=== PATIENT | female | born 1995 | race Caucasian/White ===

== ENCOUNTER 2018-11-05 21:55 | Emergency (ER) | payer OTHER ==
[2018-11-05] MEDS ORDERED: Sodium Chloride 0.9% 1000 ML 1,000 ML IV STA (23:04)
[2018-11-05 23:38] LABS: Appearance SLIGHTLY CLOUDY (CLEAR); Bacteria FEW /HPF (NEGATIVE); Bilirubin NEGATIVE (NEGATIVE); Blood NEGATIVE Ery/ul (0-5); Epithelial Cells RARE /HPF (FEW); Glucose NEGATIVE (NEGATIVE); Ketones NEGATIVE (NEGATIVE); Leukocyte Esterase NEGATIVE (NEGATIVE); Mucus MANY /HPF (NEGATIVE); Nitrite NEGATIVE (NEGATIVE); Protein,Urine Dip 30 (Negative); Specific Gravity 1.028 (1.005-1.025); Urobilinogen 2 mg/dL (0-1)
[2018-11-05] MEDS ORDERED: Sodium Chloride 0.9% 1000 ML 1,000 ML ONE (23:39)
[2018-11-05 23:54] LABS: BASOPHIL % 0.1 % (0.0-0.4); Basophil (Absolute #) 0.02 (0-0.4); Eosinophil % 0.5 % (0.00-5.0); Eosinophil (Absolute #) 0.07 (0-0.5); Granulocyte Absolute (ANC) 8.87 (1.4-6.9); Granulocytes % 65.6 % (36.0-66.0); Hematocrit 43.2 % (35-47); Hemoglobin 14.1 gm/dl (12.0-16.0); Lymphocyte (Absolute #) 3.83 (1.0-4.6); Lymphocytes % 28.3 % (24.0-44.0); Mean Cell Volume 96.2 fl (78-100); Mean Corpuscular Hemoglobin 31.4 pg (26-32); Mean Corpuscular Hgb Concent. 32.6 g/dl (32-36); Monocyte (Absolute #) 0.75 (0.0-1.3); Monocytes % 5.5 % (0.0-12.0); Platelet Count 321 K/mm3 (150-450); Red Blood Count 4.49 M/mm3 (4.1-5.4); Red Cell Distribution Width 12.9 % (11.5-14.0); White Blood Count 13.5 K/mm3 (4.0-10.5)
[2018-11-06 00:06] LABS: ALBUMIN 4.6 g/dL (3.5-5.0); ALKALINE PHOSPHATASE 71 U/L (38-126); ANION GAP 14.1 MEQ/L (5-15); BLOOD UREA NITROGEN 15 mg/dL (7-17); CHLORIDE 108 mmol/L (98-107); Calcium 9.6 mg/dL (8.4-10.2); Carbon Dioxide 24 mmol/L (22-30); Creatinine 1 0.69 mg/dL (0.52-1.04); Glucose 94 mg/dL (74-106); Potassium 4.5 mmol/L (3.5-5.1); SGOT/AST 25 U/L (14-36); SGPT/ALT 20 U/L (0-35); SODIUM 142 mmol/L (137-145); Total Protein 8.2 g/dL (6.3-8.2)
[2018-11-06 01:42] VITALS: O2SAT 98
[2018-11-06] MEDS ORDERED: Cipro 500 MG PO STA (02:08)
[2018-11-06] MEDS ORDERED: Cipro 500 MG ONE (02:14)
--- NOTE | 2018-11-06 02:19 | ERPHSYRPT ---
- History of Present Illness Source: patient Exam Limitations: no limitations Patient Subjective Stated Complaint: back pain Triage Nursing Assessment: Patient ambulated back to ED and transferred self to bed. Patient A+O X3. Patient's skin pink, warm and dry. Patient complains of back pain the the lower middle part of back. Patient denies injury to back. Patient states pain is intermittent throbbing, sharp, and stabbing at times 8/ 10. No visible bruising or areas noted to back. Physician History: Pt is a 23 y/o female that had L CVA pain for several weeks. Today the pain was severe and she came to the ER. Pt denies F/C/S. No SOB or cough. No chest pain or palpitations. The pt denies N/V/D or abdominal pain. Pt denies frequency, urgency and dysuria. Timing/Duration: week(s) Activites at Onset: none Quality: aching, cramping, dullness Onset Location: other (L CVA) Pain Radiation: left flank Severity of Pain-Max: mild Severity of Pain-Current: mild Prior abdominal problems: none Modifying Factors: Improves With: analgesics Associated Symptoms: lower back pain (on the left) Allergies/Adverse Reactions: amoxicillin [Amoxicillin] Allergy (Verified 11/05/18 22:37) cefaclor [From Ceclor] Allergy (Verified 11/05/18 22:37) Home Medications: Metformin HCl 500 mg [Glucophage 500 MG] 500 mg PO HS 03/20/13 [History] Spironolactone 1 tab PO DAILY 11/05/18 [History] Hx Tetanus, Diphtheria Vaccination/Date Given: Yes Hx Influenza Vaccination/Date Given: Yes Hx Pneumococcal Vaccination/Date Given: No - Review of Systems Constitutional: No Fever, No Chills Eyes: No Symptoms Ears, Nose, & Throat: No Symptoms Respiratory: No Cough, No Dyspnea Cardiac: No Chest Pain, No Edema, No Syncope Abdominal/Gastrointestinal: No Abdominal Pain, No Nausea, No Vomiting, No Diarrhea Genitourinary Symptoms: No Symptoms, Flank Pain (on the L) Musculoskeletal: No Back Pain, No Neck Pain Neurological: No Dizziness, No Focal Weakness, No Sensory Changes - Past Medical History Pertinent Past Medical History: Yes Neurological History: No Pertinent History ENT History: No Pertinent History Cardiac History: No Pertinent History Respiratory History: Pulmonary Embolism Endocrine Medical History: Other Musculoskeletal History: No Pertinent History GI Medical History: No Pertinent History History: No Pertinent History Psycho-Social History: No Pertinent History Female Reproductive Disorders: No Pertinent History Other Medical History: CYST 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, PE 2013 from control - Past Surgical History Past Surgical History: Yes Cardiac: No Pertinent History Respiratory: No Pertinent History Gastrointestinal: No Pertinent History Genitourinary: No Pertinent History Musculoskeletal: Orthopedic Surgery Female Surgical History: No Pertinent History Other Surgical History: TONSILS, Plate two screws and wire in L ankle, Gastric Sleeve March 2018 - Social History Smoking Status: Never smoker Exposure to second hand smoke: Yes Drug Use: none Patient Lives Alone: No - Female History Hx Last Menstrual Period: October 10 Hx Now: No - Nursing Vital Signs Nursing Vital Signs: Initial Vital Signs Temperature 98.0 F 11/05/18 22:40 Pulse Rate 78 11/05/18 22:40 Respiratory Rate 18 11/05/18 22:40 Blood Pressure 141/85 11/05/18 22:40 O2 Sat by Pulse Oximetry 97 11/05/18 22:40 Pain Scale Pain Intensity 8 - Physical Exam General Appearance: no apparent distress, alert Eye Exam: PERRL/EOMI, eyes nml inspection Ears, Nose, Throat Exam: normal ENT inspection, TMs normal, pharynx normal, moist mucous membranes Neck Exam: normal inspection, non-tender, supple, full range of motion Respiratory Exam: normal breath sounds, lungs clear, No respiratory distress Cardiovascular Exam: regular rate/rhythm, normal heart sounds, normal peripheral pulses Gastrointestinal/Abdomen Exam: soft, No tenderness, No mass Back Exam: CVA tenderness (on the L) Extremity Exam: normal inspection, normal range of motion, pelvis stable Neurologic Exam: alert, oriented x 3, cooperative, copper tapper II-XII nml as tested, normal mood/affect, sensation nml, No motor deficits SpO2 Interpretation: normal SpO2: 98 O2 Delivery: Room Air - CT Exams Abdomen/Pelvis CT Interpretation: Negative (No acute CT pathology) Ordered Tests: Active Orders 24 hr Category Date Time Status IV Insertion STAT Care 11/05/18 23:04 Active ABDOMEN AND PELVIS W/0 CONTRAS [CT] Stat Exams 11/05/18 23:05 Taken CBC W DIFF Stat Lab 11/05/18 23:50 Completed CMP Stat Lab 11/05/18 23:50 Completed CULTURE,URINE Stat Lab 11/05/18 23:20 Received HCG,QUALITATIVE URINE Stat Lab 11/05/18 23:20 Completed UA W/RFX UR CULTURE Stat Lab 11/05/18 23:20 Completed Medication Summary Discontinued Medications Generic Name Dose Route Start Last Admin Trade Name Alan PRN Reason Stop Dose Admin Ciprofloxacin 500 mg 11/06/18 02:08 Cipro 500 Mg PO 11/06/18 02:09 ONCE STA Sodium Chloride 1,000 mls @ 999 mls/hr 11/05/18 23:04 11/06/18 01:42 Sodium Chloride 0.9% 1000 Ml IV 11/06/18 00:04 Infused .Q1H1M STA Infusion Sodium Chloride Confirm 11/05/18 23:39 Sodium Chloride 0.9% 1000 Ml Administered 11/05/18 23:40 Dose 1,000 mls @ ud .ROUTE .STK-MED ONE Lab/Rad Data: Laboratory Result Diagrams 11/05/18 23:50 11/05/18 23:50 Laboratory Results 11/05/18 11/05/18 11/05/18 Range/Units 23:50 23:50 23:20 WBC 13.5 H (4.0-10.5) K/mm3 RBC 4.49 (4.1-5.4) M/mm3 Hgb 14.1 (12.0-16.0) gm/dl Hct 43.2 (35-47) % MCV 96.2 (78-100) fl MCH 31.4 (26-32) pg MCHC 32.6 (32-36) g/dl RDW 12.9 (11.5-14.0) % Plt Count 321 (150-450) K/mm3 MPV 9.0 (6-9.5) fl Gran % 65.6 (36.0-66.0) % Eos # (Auto) 0.07 (0-0.5) Absolute Lymphs (auto) 3.83 (1.0-4.6) Absolute Monos (auto) 0.75 (0.0-1.3) Lymphocytes % 28.3 (24.0-44.0) % Monocytes % 5.5 (0.0-12.0) % Eosinophils % 0.5 (0.00-5.0) % Basophils % 0.1 (0.0-0.4) % Absolute Granulocytes 8.87 H (1.4-6.9) Basophils # 0.02 (0-0.4) Sodium 142 (137-145) mmol/L Potassium 4.5 (3.5-5.1) mmol/L Chloride 108 H (98-107) mmol/L Carbon Dioxide 24 (22-30) mmol/L Anion Gap 14.1 (5-15) MEQ/L BUN 15 (7-17) mg/dL Creatinine 0.69 (0.52-1.04) mg/dL Estimated GFR > 60.0 ML/MIN Glucose 94 (74-106) mg/dL Calcium 9.6 (8.4-10.2) mg/dL Total Bilirubin 0.50 (0.2-1.3) mg/dL AST 25 (14-36) U/L ALT 20 (0-35) U/L Alkaline Phosphatase 71 (38-126) U/L Serum Total Protein 8.2 (6.3-8.2) g/dL Albumin 4.6 (3.5-5.0) g/dL Urine Color (YELLOW) Urine Appearance (CLEAR) Urine pH (5-6) Ur Specific [place] (1.005-1.025) Urine Protein (Negative) Urine Ketones (NEGATIVE) Urine Blood (0-5) Geoff/ul Urine Nitrite (NEGATIVE) Urine Bilirubin (NEGATIVE) Urine Urobilinogen (0-1) mg/dL Ur Leukocyte Esterase (NEGATIVE) Urine WBC (Auto) (0-5) /HPF Urine RBC (Auto) (0-2) /HPF U Epithel Cells (Auto) (FEW) /HPF Urine Bacteria (Auto) (NEGATIVE) /HPF Urine Mucus (Auto) (NEGATIVE) /HPF Urine Culture Reflexed (NO) Urine Glucose (NEGATIVE) mg/dL Urine HCG, Qual NEGATIVE (Negative) 11/05/18 Range/Units 23:20 WBC (4.0-10.5) K/mm3 RBC (4.1-5.4) M/mm3 Hgb (12.0-16.0) gm/dl Hct (35-47) % MCV (78-100) fl MCH (26-32) pg MCHC (32-36) g/dl RDW (11.5-14.0) % Plt Count (150-450) K/mm3 MPV (6-9.5) fl Gran % (36.0-66.0) % Eos # (Auto) (0-0.5) Absolute Lymphs (auto) (1.0-4.6) Absolute Monos (auto) (0.0-1.3) Lymphocytes % (24.0-44.0) % Monocytes % (0.0-12.0) % Eosinophils % (0.00-5.0) % Basophils % (0.0-0.4) % Absolute Granulocytes (1.4-6.9) Basophils # (0-0.4) Sodium (137-145) mmol/L Potassium (3.5-5.1) mmol/L Chloride (98-107) mmol/L Carbon Dioxide (22-30) mmol/L Anion Gap (5-15) MEQ/L BUN (7-17) mg/dL Creatinine (0.52-1.04) mg/dL Estimated GFR ML/MIN Glucose (74-106) mg/dL Calcium (8.4-10.2) mg/dL Total Bilirubin (0.2-1.3) mg/dL AST (14-36) U/L ALT (0-35) U/L Alkaline Phosphatase (38-126) U/L Serum Total Protein (6.3-8.2) g/dL Albumin (3.5-5.0) g/dL Urine Color YELLOW (YELLOW) Urine Appearance SLIGHTLY CLOUDY (CLEAR) Urine pH 6.0 (5-6) Ur Specific [place] 1.028 (1.005-1.025) Urine Protein 30 (Negative) Urine Ketones NEGATIVE (NEGATIVE) Urine Blood NEGATIVE (0-5) Geoff/ul Urine Nitrite NEGATIVE (NEGATIVE) Urine Bilirubin NEGATIVE (NEGATIVE) Urine Urobilinogen 2 (0-1) mg/dL Ur Leukocyte Esterase NEGATIVE (NEGATIVE) Urine WBC (Auto) 3-5 (0-5) /HPF Urine RBC (Auto) 3-5 (0-2) /HPF U Epithel Cells (Auto) RARE (FEW) /HPF Urine Bacteria (Auto) FEW (NEGATIVE) /HPF Urine Mucus (Auto) MANY (NEGATIVE) /HPF Urine Culture Reflexed YES (NO) Urine Glucose NEGATIVE (NEGATIVE) mg/dL Urine HCG, Qual (Negative) - Progress Progress: improved Air Movement: good Progress Note: 11/06/18 02:23 Pt was seen and examined. WBCs were4 13.5, otherwise, labs and UA were negative , as well as CT. Pt did get IVF 1 lit bolus. I will treat pt for UTI, secondary to clinical signs and WBCss. Pt should f/u with her PCP if no improvement in symptoms. Blood Culture(s) Obtained: No Antibiotics given: Yes Will see patient in: office Counseled pt/family regarding: need for follow-up - Departure Departure Disposition: Home Clinical Impression: Left low back pain Condition: Stable Critical Care Time: No Referrals: ERICKA DE SANTIAGO [Primary Care Provider] - Additional Instructions: Drink plenty of fluids, and finish ABX. F/U with PCP. Prescriptions: Ciprofloxacin [Cipro 500 MG] 500 mg PO BIDAC #13 tablet
[2018-11-06 02:53] VITALS: BP 111/50; PULSE 73
--- NOTE | 2018-11-06 09:04 | XRAY ---
Indication: Left costovertebral angle pain couple weeks. Elevated WBC. Multiple contiguous axial images obtained through the abdomen and pelvis without contrast as ordered. Comparison: None Lung bases are clear. Heart is not enlarged. Small distal paraesophageal calcified node. There has been bariatric surgery. Noncontrasted stomach and bowel loops appear nonobstructed. Normal appendix. No free fluid/air. Remaining liver, gallbladder, pancreas, spleen, adrenal glands, kidneys, ureters, bladder, uterus, and aorta appear unremarkable for noncontrast exam. Osseous structures intact. Impression: 1. Bariatric surgery and paraesophageal calcified node. 2. Remaining CT abdomen/pelvis without contrast exam is negative. Comment: Preliminary interpretation was made by [facility]. No critical discrepancy. CT DI 28.13
== END 2018-11-06 02:44 | disposition home or self-care (01) ==
LOC: ED 21:55
DX: M54.5 Low back pain (principal); N39.0 Urinary tract infection, site not specified
CPT/HCPCS: 36000; 36415; 74176; 80053; 81001; 84703; 85025; 87077; 87086; 87186; 96360; 99284; A9270-GY

== ENCOUNTER 2018-12-06 20:14 | Emergency (ER) | payer OTHER ==
--- NOTE | 2018-12-06 20:17 | ERPHSYRPT ---
- History of Present Illness Time Seen by Provider: 12/06/18 20:17 Source: patient Exam Limitations: no limitations Physician History: 23 y/o white female presents with low back and tailbone pain. pt slipped on stairs hitting her low back and buttock on 3 steps. pt has no urinary sx Occurred: just prior to arrival Reason for Fall: slipped Injuries/Pain Location: back, lower Loss of Consciousness: no loss of consciousness Quality: aching Severity of Pain-Max: moderate Severity of Pain-Current: moderate Modifying Factors: Improves With: movement Associated Symptoms (Fall): denies symptoms Allergies/Adverse Reactions: amoxicillin [Amoxicillin] Allergy (Verified 12/06/18 20:19) cefaclor [From Ceclor] Allergy (Verified 12/06/18 20:19) Home Medications: Metformin HCl 500 mg [Glucophage 500 MG] 500 mg PO HS 03/20/13 [History] Spironolactone 1 tab PO DAILY 11/05/18 [History] Hx Tetanus, Diphtheria Vaccination/Date Given: Yes Hx Influenza Vaccination/Date Given: Yes Hx Pneumococcal Vaccination/Date Given: No - Review of Systems Constitutional: No Symptoms Eyes: No Symptoms Ears, Nose, & Throat: No Symptoms Respiratory: No Symptoms Cardiac: No Symptoms Abdominal/Gastrointestinal: No Symptoms Genitourinary Symptoms: No Symptoms Musculoskeletal: Fall, Injury Skin: No Symptoms Neurological: No Symptoms Psychological: No Symptoms Endocrine: No Symptoms Hematologic/Lymphatic: No Symptoms Immunological/Allergic: No Symptoms All Other Systems: Reviewed and Negative - Past Medical History Pertinent Past Medical History: Yes Neurological History: No Pertinent History ENT History: No Pertinent History Cardiac History: No Pertinent History Respiratory History: Pulmonary Embolism Endocrine Medical History: Other Musculoskeletal History: No Pertinent History GI Medical History: No Pertinent History History: No Pertinent History Psycho-Social History: No Pertinent History Female Reproductive Disorders: No Pertinent History Other Medical History: CYST 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, PE 2013 from control - Past Surgical History Past Surgical History: Yes Cardiac: No Pertinent History Respiratory: No Pertinent History Gastrointestinal: No Pertinent History Genitourinary: No Pertinent History Musculoskeletal: Orthopedic Surgery Female Surgical History: No Pertinent History Other Surgical History: TONSILS, Plate two screws and wire in L ankle, Gastric Sleeve March 2018 - Social History Smoking Status: Never smoker Exposure to second hand smoke: Yes Drug Use: none Patient Lives Alone: No - Nursing Vital Signs Nursing Vital Signs: Initial Vital Signs Temperature 98.0 F 12/06/18 20:20 Pulse Rate 58 L 12/06/18 20:20 Respiratory Rate 18 12/06/18 20:20 Blood Pressure 148/77 12/06/18 20:20 O2 Sat by Pulse Oximetry 99 12/06/18 20:20 Pain Scale Pain Intensity 7 - [place] Coma Score Best Eye Response (Edgar): (4) open spontaneously Best Verbal Response ([place]): (5) oriented Best Motor Response (Edgar): (6) obeys commands Edgar Total: 15 - Physical Exam General Appearance: mild distress, alert, anxiety Head Injury: no evidence of injury Eye Exam: PERRL/EOMI, eyes nml inspection ENT Exam: airway nml, nml ext.inspection, No evidence of ENT injury Neck Exam: supple, trachea midline, full range of motion, normal alignment, normal inspection Respiratory/Chest Exam: No chest tenderness, No respiratory distress Gastrointestinal Exam: No tenderness Rectal Exam: not done Back Exam: normal inspection, normal range of motion, muscle spasm (lumbar level ), other (no ecchymosis or step off), No CVA tenderness, No vertebral tenderness Extremity Exam: normal inspection, normal range of motion, pelvis stable Neurologic Exam: alert, oriented x 3, cooperative, squadron worker II-XII nml as tested, normal mood/affect, nml cerebellar function, nml station & gait, sensation nml Skin Exam: normal color, warm, dry SpO2 Interpretation: normal O2 Delivery: Room Air - Course Nursing assessment & vital signs reviewed: Yes Ordered Tests: Active Orders 24 hr Category Date Time Status LUMBAR LIMITED (2 OR 3 VIEWS) Stat Exams 12/06/18 20:35 Ordered SACRUM AND COCCYX Stat Exams 12/06/18 Ordered Medication Summary Discontinued Medications Generic Name Dose Route Start Last Admin Trade Name Freq PRN Reason Stop Dose Admin Oxycodone/Acetaminophen 1 tab 12/06/18 20:54 Percocet Tablet 5/325mg PO 12/06/18 20:55 STAT STA - Progress Progress: unchanged Progress Note: 12/06/18 21:02 lumbar and sacrococcyx xray-no acute fx or subluxation Counseled pt/family regarding: diagnosis, need for follow-up, rad results - Departure Departure Disposition: Home Clinical Impression: Fall, Contusion Condition: Stable Critical Care Time: No Referrals: ERICKA DE SANTIAGO [Primary Care Provider] - Additional Instructions: ice pack to area 3 times daily for 3 days. tylenol and ibuprofen with food for pain. follow up with primary doctor for persistent symptoms
[2018-12-06 20:30] VITALS: O2SAT 99
[2018-12-06] MEDS ORDERED: PERCOCET TABLET 5/325MG PO STA (20:54)
[2018-12-06] MEDS ORDERED: PERCOCET TABLET 5/325MG ONE (21:03)
[2018-12-06 21:23] VITALS: BP 110/56; PULSE 60
--- NOTE | 2018-12-06 21:37 | XRAY ---
Indication: Pain following fall. Comparison: None 3 views of the sacrum/coccyx obtained. No bony, articular, or soft tissue abnormalities.
--- NOTE | 2018-12-06 21:42 | XRAY ---
Indication: Pain following fall. Comparison: None 3 views of the lumbar spine demonstrates 5 lumbar vertebral segments in normal alignment with vertebral body height/disc spaces maintained and minimal T11-T12 anterior endplate spurring. No bony, articular, or soft tissue abnormalities.
== END 2018-12-06 21:24 | disposition home or self-care (01) ==
LOC: ED 20:14
DX: S30.0XXA Contusion of lower back and pelvis, initial encounter (principal); W01.0XXA Fall on same level from slipping, tripping and stumbling without subsequent striking against object, initial encounter; Y93.89 Activity, other specified; Y92.89 Other specified places as the place of occurrence of the external cause; M54.5 Low back pain
CPT/HCPCS: 72100; 72220; 99283; A9270-GY

== ENCOUNTER 2019-08-25 23:09 | Emergency (ER) | payer OTHER ==
[2019-08-25] MEDS ORDERED: Sodium Chloride 0.9% 1000 ML 1,000 ML IV STA (23:38)
[2019-08-25] MEDS ORDERED: Sodium Chloride 0.9% 1000 ML 1,000 ML ONE (23:43)
--- NOTE | 2019-08-26 00:24 | ERPHSYRPT ---
- History of Present Illness Time Seen by Provider: 08/25/19 23:30 Patient Subjective Stated Complaint: pt states that she was on the [place] yesterday and began to feel bad yesterday night, pt states that today she began to have nausea, pt states that she has a headache, pt states that she went to [facility] today and states that she received a bag of fluid and 2 tylenol, pt states that she had labs and a CT done at [facility], pt states "there is something really wrong and no one is taking me serious" Triage Nursing Assessment: pt came into the er via wheelchair, pt is axo x3, c/ o weakness and headache, c/o nausea, lung sounds clear, heart tone clear, active bowel sounds in all quads, sericulturist weak, pushes weak, pupils 3 mm and PERRL , vital wnl Physician History: 24-year-old female who is been boating and skiing for 2 days who this evening started to feel weak and lightheaded and somewhat dizzy. She was taken to [facility] where she had a rather extensive work-up including a CT of the head and multiple blood tests. She came from there to here because she is convinced that something was missed. Headache. Timing/Duration: today Severity: mild Modifying Factors: Improves With: nothing Associated Symptoms: denies symptoms Allergies/Adverse Reactions: amoxicillin [Amoxicillin] Allergy (Verified 12/06/18 20:19) cefaclor [From Ceclor] Allergy (Verified 12/06/18 20:19) Home Medications: Metformin HCl 500 mg [Glucophage 500 MG] 500 mg PO HS 03/20/13 [History] Sertraline HCl 50 mg PO DAILY 08/25/19 [History] Hx Tetanus, Diphtheria Vaccination/Date Given: Yes Hx Influenza Vaccination/Date Given: Yes Hx Pneumococcal Vaccination/Date Given: No Travel Risk - International Travel Have you traveled outside of the country in past 3 weeks: No - Coronavirus Screening Are you exhibiting any of the following symptoms?: No Close contact with a COVID-19 positive Pt in past 14-21 Days: No - Review of Systems Constitutional: No Fever, No Chills Eyes: No Symptoms Ears, Nose, & Throat: No Symptoms Respiratory: No Cough, No Dyspnea Cardiac: No Chest Pain, No Edema, No Syncope Abdominal/Gastrointestinal: No Abdominal Pain, No Nausea, No Vomiting, No Diarrhea Genitourinary Symptoms: No Dysuria Musculoskeletal: No Back Pain, No Neck Pain Skin: No Rash Neurological: Headache, Vertigo, No Dizziness, No Focal Weakness, No Sensory Changes Psychological: No Symptoms Endocrine: No Symptoms All Other Systems: Reviewed and Negative - Past Medical History Pertinent Past Medical History: Yes Neurological History: No Pertinent History ENT History: No Pertinent History Cardiac History: Deep Vein Thrombosis Respiratory History: Pulmonary Embolism Endocrine Medical History: No Pertinent History Musculoskeletal History: Fractures GI Medical History: No Pertinent History History: No Pertinent History Psycho-Social History: Depression Female Reproductive Disorders: No Pertinent History Other Medical History: CYST 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, PE 2013 from control - Past Surgical History Past Surgical History: Yes Neuro Surgical History: No Pertinent History Cardiac: No Pertinent History Respiratory: No Pertinent History Gastrointestinal: No Pertinent History Genitourinary: No Pertinent History Musculoskeletal: Orthopedic Surgery Female Surgical History: No Pertinent History Other Surgical History: TONSILS, Plate two screws and wire in L ankle, Gastric Sleeve March 2018 - Social History Smoking Status: Never smoker Exposure to second hand smoke: Yes Drug Use: none Patient Lives Alone: No - Female History Hx Now: No - Nursing Vital Signs Nursing Vital Signs: Initial Vital Signs Temperature 97.5 F 08/25/19 23:15 Pulse Rate 61 08/25/19 23:15 Respiratory Rate 16 08/25/19 23:15 Blood Pressure 127/90 08/25/19 23:15 O2 Sat by Pulse Oximetry 97 08/25/19 23:15 Pain Scale Pain Intensity 5 - Physical Exam General Appearance: mild distress, alert Eye Exam: PERRL/EOMI, eyes nml inspection Ears, Nose, Throat Exam: normal ENT inspection, TMs normal, pharynx normal, moist mucous membranes Neck Exam: normal inspection, non-tender, supple, full range of motion Respiratory Exam: normal breath sounds, lungs clear, No respiratory distress Cardiovascular Exam: regular rate/rhythm, normal heart sounds, normal peripheral pulses Gastrointestinal/Abdomen Exam: soft, normal bowel sounds, No tenderness, No mass Back Exam: normal inspection, normal range of motion, No CVA tenderness, No vertebral tenderness Extremity Exam: normal inspection, normal range of motion, pelvis stable Neurologic Exam: alert, oriented x 3, cooperative, normal mood/affect, nml cerebellar function, nml station & gait, sensation nml, No motor deficits Skin Exam: normal color, warm, dry, No rash Lymphatic Exam: No adenopathy SpO2: 100 - Course Nursing assessment & vital signs reviewed: Yes EKG Interpreted by Me: RATE (58), NORMAL AXIS, NORMAL INTERVALS, Non-specific ST Changes Ordered Tests: Active Orders 24 hr Category Date Time Status EKG-ER Only STAT Care 08/26/19 00:02 Active Medication Summary Generic Name Dose Route Start Last Admin Trade Name Freq PRN Reason Stop Dose Admin Sodium Chloride 1,000 mls @ 999 mls/hr 08/25/19 23:38 08/25/19 23:50 Sodium Chloride 0.9% 1000 Ml IV 08/26/19 00:38 999 mls/hr .Q1H1M STA Administration Discontinued Medications Generic Name Dose Route Start Last Admin Trade Name Freq PRN Reason Stop Dose Admin Sodium Chloride Confirm 08/25/19 23:43 Sodium Chloride 0.9% 1000 Ml Administered 08/25/19 23:44 Dose 1,000 mls @ ud .ROUTE .K-MED ONE - Progress Progress: improved - Departure Departure Disposition: Home Clinical Impression: Dehydration Condition: Stable Critical Care Time: No Referrals: ERICKA DE SANTIAGO [Primary Care Provider] - Instructions: Dehydration, Adult (DC)
[2019-08-26 00:57] VITALS: BP 97/66; PULSE 64; O2SAT 98
== END 2019-08-26 01:06 ==
LOC: ED 23:09
DX: E86.0 Dehydration (principal); R51 Headache; R11.0 Nausea; R53.1 Weakness; R42 Dizziness and giddiness
CPT/HCPCS: 36000; 93005; 96360; 99284

== ENCOUNTER 2019-11-08 10:26 | Emergency (ER) | payer OTHER ==
[2019-11-08 10:40] VITALS: BP 127/101; PULSE 94; O2SAT 100
--- NOTE | 2019-11-08 10:57 | ERPHSYRPT ---
- History of Present Illness Time Seen by Provider: 11/08/19 10:35 Source: patient Exam Limitations: no limitations Patient Subjective Stated Complaint: Right ear began hurting yesterday and had drainage last night from it, began running fever yesterday and now has headache and body aches Triage Nursing Assessment: Pt was brought to the ER by her boyfriend, tachycardic, low grade temp, rates ear/head pain as 8/10, states that she has pain going down her right side of neck below the ear, right ear hot to touch, denies N&V Physician History: 24 years old female presented in the ER with chief complaint of right earache since yesterday' with progressive worsening associated with swelling of canal and lymph nodes in the upper neck. She also noticed some discharge last night. Timing/Duration: gradual onset, yesterday Severity: moderate ENT Location: ear (R) Prearrival Treatment: over the counter meds Associated Symptoms: ear pain (R), ear drainage, facial pain/swelling, headache, neck pain Allergies/Adverse Reactions: amoxicillin [Amoxicillin] Allergy (Verified 11/08/19 10:41) cefaclor [From Ceclor] Allergy (Verified 11/08/19 10:41) Home Medications: Metformin HCl 500 mg [Glucophage 500 MG] 500 mg PO HS 03/20/13 [History] Sertraline HCl 50 mg PO DAILY 08/25/19 [History] Ergocalciferol (Vitamin D2) [Vitamin D2] 1 cap PO WEEKLY 11/08/19 [History] Hx Tetanus, Diphtheria Vaccination/Date Given: Yes Hx Influenza Vaccination/Date Given: Yes Hx Pneumococcal Vaccination/Date Given: No Travel Risk - International Travel Have you traveled outside of the country in past 3 weeks: No - Coronavirus Screening Are you exhibiting any of the following symptoms?: No Close contact with a COVID-19 positive Pt in past 14-21 Days: No - Review of Systems Constitutional: No Symptoms Eyes: No Symptoms Ears, Nose, & Throat: Ear Pain, Ear Discharge Respiratory: No Symptoms Cardiac: No Symptoms Abdominal/Gastrointestinal: No Symptoms Genitourinary Symptoms: No Symptoms Musculoskeletal: No Symptoms Skin: No Symptoms Neurological: No Symptoms Psychological: No Symptoms Endocrine: No Symptoms Hematologic/Lymphatic: No Symptoms - Past Medical History Pertinent Past Medical History: Yes Neurological History: No Pertinent History ENT History: No Pertinent History Cardiac History: Deep Vein Thrombosis Respiratory History: Pulmonary Embolism Endocrine Medical History: No Pertinent History Musculoskeletal History: Fractures GI Medical History: No Pertinent History History: No Pertinent History Psycho-Social History: Depression Female Reproductive Disorders: No Pertinent History Other Medical History: CYST 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, PE 2013 from control - Past Surgical History Past Surgical History: Yes Neuro Surgical History: No Pertinent History Cardiac: No Pertinent History Respiratory: No Pertinent History Gastrointestinal: No Pertinent History Genitourinary: No Pertinent History Musculoskeletal: Orthopedic Surgery Female Surgical History: No Pertinent History Other Surgical History: TONSILS, Plate two screws and wire in L ankle removed, Gastric Sleeve March 2018 - Social History Smoking Status: Never smoker Exposure to second hand smoke: No Drug Use: none Patient Lives Alone: No - Female History Hx Now: No - Nursing Vital Signs Nursing Vital Signs: Initial Vital Signs Temperature 99.2 F 11/08/19 10:32 Pulse Rate 94 H 11/08/19 10:32 Blood Pressure 127/101 11/08/19 10:32 O2 Sat by Pulse Oximetry 100 11/08/19 10:32 Pain Scale Pain Intensity 8 - Physical Exam General Appearance: no apparent distress, alert Eye Exam: bilateral eye: normal inspection, PERRL, EOMI Ear Exam: right ear: tenderness (Pinna movements), other (swollen canal, TM not visible, no discharge), left ear: canal normal, TM normal, bilateral ear: auricle normal Nasal Exam: normal inspection Throat Exam: normal, pharynx normal Neck Exam: normal inspection, supple, full range of motion, lymphadenopathy (R) Cardiovascular/Respiratory Exam: normal breath sounds, regular rate/rhythm Neurologic Exam: alert, oriented x 3, cooperative, 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, normal mood/affect Skin Exam: normal color SpO2 Interpretation: normal SpO2: 100 O2 Delivery: Room Air - Progress Progress: unchanged Counseled pt/family regarding: need for follow-up - Departure Departure Disposition: Home Clinical Impression: Acute otitis media Qualifiers: Otitis media type: other nonsuppurative Laterality: right Recurrence: recurrent Qualified Code(s): H65.194 - Other acute nonsuppurative otitis media, recurrent, right ear Otitis externa Qualifiers: Otitis externa type: diffuse Chronicity: acute Laterality: right Qualified Code(s): H60.311 - Diffuse otitis externa, right ear Condition: Stable Critical Care Time: No Referrals: ERICKA DE SANTIAGO [Primary Care Provider] - Follow Up with PCP/3 days Instructions: Outer Ear Infection, Serous Otitis Media (DC) Additional Instructions: Tylenol/ibuprofen as needed for pain/fever. Follow-up with your primary care physician for reevaluation. Return to ER for worsening pain/fever/discharge etc. Prescriptions: Ofloxacin Otic 5 ml [Floxin Otic 5 ML] 5 drops OT BID 7 Days #1 bottle Azithromycin 250 mg [Zithromax 250 MG TABLET] 250 mg PO ZPACK #6 tablet
== END 2019-11-08 11:13 | disposition home or self-care (01) ==
LOC: ED 10:26
DX: H65.194 Other acute nonsuppurative otitis media, recurrent, right ear (principal)
CPT/HCPCS: 99283

== ENCOUNTER 2021-10-07 05:49 | Day surgery (SDC) | payer OTHER ==
[2021-10-07] MEDS ORDERED: Versed 2 MG/2 ML Injection IV PRN (06:23)
[2021-10-07] MEDS ORDERED: Transderm Scop 1.5MG Patch TOP PRN (06:23)
[2021-10-07] MEDS ORDERED: Pepcid 20 MG VIAL IV ONE (06:23)
[2021-10-07] MEDS ORDERED: Reglan 10 MG/2 ML IV ONE (06:23)
[2021-10-07] MEDS ORDERED: Lactated Ringers 1,000 ML IV SCH (06:30)
[2021-10-07] MEDS ORDERED: Epinephrine Preservative Free 1 MG/ML ONE ×3 (06:35→08:17)
[2021-10-07] MEDS ORDERED: XYLOCAINE 1% HCL 20 ML MDV ONE (06:35)
[2021-10-07] MEDS ORDERED: Marcaine Mpf 0.5% Vial 30 Ml ONE ×2 (06:38→10:41)
[2021-10-07] MEDS ORDERED: TORAdol 30 mg Injection ONE ×2 (06:59→10:51)
[2021-10-07] MEDS ORDERED: Zofran 4 MG/2 ML VIAL ONE (06:59)
[2021-10-07] MEDS ORDERED: BRIDION 200MG/2ML IV ONE (06:59)
[2021-10-07] MEDS ORDERED: Decadron 4 MG INJ ONE (06:59)
[2021-10-07] MEDS ORDERED: Xylocaine-Mpf 2% 5 Ml Vial ONE (06:59)
[2021-10-07] MEDS ORDERED: DIPRIVAN 200 MG/20 ML IV ONE (06:59)
[2021-10-07] MEDS ORDERED: Zemuron 100 MG/10 ML ONE (06:59)
[2021-10-07] MEDS ORDERED: SUBLIMAZE 100 MCG/2 ML ONE ×3 (06:59→10:40)
[2021-10-07] MEDS ORDERED: CLINDAMYCIN-D5W 900 MG/50 ML*** 900 MG/50 ML BAG IV ONE (07:13)
[2021-10-07] MEDS ORDERED: DEXMEDETOMIDINE 80 MCG/20ML-NS IV ONE (08:41)
--- NOTE | 2021-10-07 10:11 | XRAY ---
Indication: Left ankle arthroscopy and arthrodesis. Intraoperative fluoroscopy provided for 1 minute 18 seconds. 12 digital spot images submitted for interpretation ultimately demonstrates a lateral malleolus fixation plate and 4 transverse screws. Correlate with intraoperative findings/report.
[2021-10-07] MEDS ORDERED: Lactated Ringers 1,000 ML IV ONE (10:51)
[2021-10-07] MEDS ORDERED: Compazine 10 MG/2 ML ONE (10:54)
[2021-10-07] MEDS ORDERED: NORCO 5/325 MG PO PRN (12:04)
--- NOTE | 2021-10-07 12:10 | OP ---
SURGERY DATE: 10/07/2021 0712 PREOPERATIVE DIAGNOSES: 1) Syndesmotic instability. 2) Left ankle pain. 3) Ankle synovitis. POSTOPERATIVE DIAGNOSES: 1) Syndesmotic instability. 2) Left ankle pain. 3) Ankle synovitis. PROCEDURES: 1) Ankle arthroscopy with complete synovectomy. 2) Tibiofibular arthrodesis. SURGEON: Ramiro Escudero DPM. BEEF SELECTOR: None. ANESTHESIA: General plus a postoperative regional block. See anesthesia report for details. HEMOSTASIS: Thigh tourniquet set to 350 mm of Mercury for 82 total tourniquet minutes. ESTIMATED BLOOD LOSS: Less than 10 cc. MATERIALS: [employer] four-hole plate with four nonlocking screws 50, 60 and two - 20 mm screws. INJECTABLES: See anesthesia report for details. INDICATION FOR SURGERY: Adelita is a very pleasant 26-year-old female who suffered a fracture approximately eight years ago of her left ankle which was fixated by an orthopedic. Following the procedure, the patient did have continued pain and several years thereafter the patient did have hardware removed to the ankle. Pain was controlled for some period of time. However, the patient started to experience some pain at the ankle joint with instability. She was assessed in my clinic for the pain she was experiencing. She did have an injection which was short lived as far as the relief that was provided. She has failed all conservative therapies including physical therapy, bracing and injections as well as [id number] anti-inflammatories. The patient at this time wishes to proceed with surgical intervention. Discussion was performed in regards to the indications for certain procedures as the patient is extraordinarily young for this pathology. Total ankle replacement was out of the question. The option of an attempted definitive fusion of the ankle joint would help to control the pain. However, the patient was unwilling to lose range of motion. Therefore, we opted for a tibiofibular syndesmosis fusion in order to address the syndesmotic instability as well as an arthroscopy to clean any of the scar tissue within the ankle joint. The patient understands all risks, complications and benefits of surgical intervention including but not limited to infection, hematoma, seroma, possibility of delayed bone healing, nonbone healing, risk of nonunion, possibility of delayed union and possibility of delayed skin healing. The patient understands all of these risks and wishes to proceed with surgical intervention. This was not intended to be the final procedure and this was discussed with the patient in regards to a staged approach to see if this works prior to proceeding with a total ankle joint replacement. The patient understands this and wishes to proceed at this time. DESCRIPTION OF PROCEDURE AND FINDINGS: The patient is brought into the OR and placed on the OR table in the supine position. At this time, adequate general anesthesia was administered until the patient was sedated. The left lower extremity had a well-padded thigh tourniquet was applied and the tourniquet was set to 350 mm of Mercury. At this time the left lower extremity was prepped and draped in the typical sterile fashion and lowered onto the surgical field. At this time attention was directed to the anterior aspect of the ankle where mapping of the arthroscopy was taken place at the tip of the medial and lateral malleolus being marked out as well as the palpable dell of the ankle joint. At this time utilizing the markings indicated, a 30 cc syringe on an 18 gauge needle with lactated Ringer's was injected at the medial portal site. A 15 blade was utilized to incise the skin and then blunt dissection was carried down to the capsule of the joint. At this time a blunt trocar and obturator were introduced. The obturator was removed and the camera was introduced into the medial portal. Lights were turned off and the light was used to make an anterior lateral portal at the front of the ankle under the guidance of the light. Once again blunt dissection was made and the shaver was introduced. Immediately the joint was identified however a significant amount of constrictures and synovitis was identified within the ankle joint which were debrided utilizing the Aggressor shaver. Once the joint was cleaned enough, constrictive bands were removed utilizing a punch rongeur. Synovectomy was performed with distraction in order to gain access to the posterior aspect of the ankle joint where a significant amount of the synovitis was encountered. At this time the anterior inferior talofibular ligament (AITFL) was identified as well as Ney's ligament which was low lying and debrided. At this time the syndesmosis was stressed and pictures were taken demonstrating some gapping of the tibiofibular articulation. At this time the soft tissue and scar tissue at the syndesmosis was cleaned utilizing Aggressor shaver and punch. Following this the portals were switched and further synovectomy was performed. Pictures were taken and the camera and the shaver withdrawn from the sites. At this time attention was directed under fluoroscopic guidance on lateral view of the anterior border of the tibiofibular articulation and the anterior border of the fibula. An incision was made approximately 8 cm in length to the anterior aspect of the fibula which was performed being careful not to damage any neurovascular structures along the way. At this time sharp dissection full thickness flap was carried to the anterior aspect of the fibula and carried to the anterolateral aspect of the tibia where Delmar's were introduced being careful not to damage any of the neurovascular structures at the anterior aspect of the joint. At this time once again the syndesmosis was stressed under fluoroscopic guidance and determined to have a significant amount of instability with approximately 4 mm of gapping. At this time a combination of rongeurs, curettes, osteotomes and flushes were utilized to prep the surfaces between the tibiofibular articulation this was flushed with copious amounts of sterile saline and graft was introduced into the site. A 2.0 mm drill bit was utilized to fenestrate along with osteotome and rongeur in order to create vascular inflow. Graft again was then placed between the deficits. A four-hole straight plate was utilized with a nonlocking 3.5 x 50 and 60 mm screw. At this time two - 20 mm screws were introduced at the distal and proximal aspect of the plate this was performed with tenaculum at the anterior one-third of the medial malleolus and on the central aspect of the fibula in order to close down the syndesmosis. At this time attention was directed in a dry scope to the syndesmosis and was once again tested demonstrating no laxity and congruency between the tibiofibular articulation. At this time the scopes were once again retracted. A superficial flush was performed of the incision site. The incision site was then coapted with simple interrupted buried sutures for subcutaneous tissue and 3-0 Nylon was utilized in a horizontal mattress-type fashion to coapt the surgical incision. The portals for the arthroscopy were closed utilizing a simple interrupted stitch. Following this, the leg was cleansed with copious amounts of sterile saline and dried. A dressing consisting of Betadine, Adaptic, 4x4, Kerlix and a well-padded posterior splint with Sugar-Tong was applied to the left lower extremity with the foot orthogonal relative to longitudinal axis of the tibia. The patient was then provided a postoperative regional block. See anesthesia report for details. The patient then was returned to the postoperative anesthesia care unit with vital signs stable and vascular status intact. The patient handled the operation as well as the anesthesia without significant complication. Postoperative orders as indicated in the patient's discharge chart.
[2021-10-07 12:14] VITALS: BP 110/63; PULSE 101; O2SAT 97
--- NOTE | 2021-10-07 12:27 | XRAY ---
1 minute and 18 seconds fluoroscopy time in surgery for left ankle arthroscopy and arthrodesis.
== END 2021-10-07 12:30 | disposition home or self-care (01) ==
LOC: SDC 05:49
PROVIDERS: ATTEND Podiatrist Foot & Ankle Surgery
DX: M25.372 Other instability, left ankle (principal); M25.572 Pain in left ankle and joints of left foot; S93.402A Sprain of unspecified ligament of left ankle, initial encounter; S82.852S Displaced trimalleolar fracture of left lower leg, sequela; M19.072 Primary osteoarthritis, left ankle and foot; E11.9 Type 2 diabetes mellitus without complications
CPT/HCPCS: 27870; 29898; 64450; 73630; 76000; 76937; 76942; 81025; 82947; J0171; J1100; J1885; J2250; J2405; J2704; J3010; A9270-GY

== ENCOUNTER 2021-10-20 10:55 | Emergency (ER) | payer OTHER ==
[2021-10-20 11:03] VITALS: O2SAT 98
[2021-10-20] MEDS ORDERED: Sodium Chloride 0.9% 1000 ML 1,000 ML IV STA (11:22)
--- NOTE | 2021-10-20 11:34 | ERPHSYRPT ---
- History of Present Illness Time Seen by Provider: 10/20/21 11:00 Source: patient Exam Limitations: no limitations Patient Subjective Stated Complaint: Pt sates "I was sitting at my desk looking at my screen and all of a sudden I had shortness of breath and my screan got a little blurry. I just feel like I cannot catch my breath." Triage Nursing Assessment: PT presented alert and oriented X 3, skin pwd. Pt ambulates with a rollator, pt has cast on left foot. tp stated surgery last sunday Physician History: Patient is a 26-year-old female presents emergency department for evaluation of shortness of breath blurred vision and near syncope. Patient that she was at work sitting at her desk when symptoms abruptly occurred. Patient advises she has a history of PE. Patient had surgery to her left ankle 1 week ago. Patient the surgery was uncomplicated. No trauma. No fever no diarrhea. No rash. Symptoms are mild to moderate in intensity. No specific worsening improving factors. Patient states since arrival to our ED her symptoms have resolved. Patient voices no other complaints or concerns at this time. Portions of this note were created with voice recognition technology. There may be grammatical, spelling, punctuation or sound alike errors Timing/Duration: today Severity: mild Modifying Factors: Improves With: nothing Associated Symptoms: denies symptoms Allergies/Adverse Reactions: amoxicillin [Amoxicillin] Allergy (Mild, Verified 10/07/21 06:17) Rash cefaclor [From Ceclor] Allergy (Mild, Verified 10/07/21 06:17) Rash Home Medications: Metformin HCl 500 mg [Glucophage 500 MG] 500 mg PO DAILY 03/20/13 [History] Buspirone HCl 5 mg [Buspar 5 mg] 10 mg PO HS 10/03/21 [History] Spironolactone 25 mg [Aldactone 25 MG] 50 mg PO DAILY 10/03/21 [History] Lisinopril 10 mg [Zestril 10 MG] 0 mg PO DAILY 10/07/21 [History] Semaglutide [Ozempic] 0.5 mg SQ WEEKLY 10/07/21 [History] buPROPion HCl [Wellbutrin Sr] 0 mg PO DAILY 10/07/21 [History] Rivaroxaban 10 mg Tablet [Xarelto 10 mg Tablet] 10 mg PO DAILY 10/20/21 [History] Hx Tetanus, Diphtheria Vaccination/Date Given: Yes Hx Influenza Vaccination/Date Given: Yes Hx Pneumococcal Vaccination/Date Given: No Immunizations Up to Date: Yes Travel Risk - International Travel Have you traveled outside of the country in past 3 weeks: No - Coronavirus Screening Are you exhibiting any of the following symptoms?: No Close contact with a COVID-19 positive Pt in past 14-21 Days: No - Vaccine Status Have you recieved a Covid-19 vaccination: Yes 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 - Vaccination Dates Date of 2cond Vaccination (if applicable): 2020 - Review of Systems Constitutional: No Symptoms, No Fever, No Chills Eyes: No Symptoms Ears, Nose, & Throat: No Symptoms Respiratory: No Symptoms, No Cough, No Dyspnea Cardiac: No Symptoms, No Chest Pain, No Edema, No Syncope Abdominal/Gastrointestinal: No Symptoms, No Abdominal Pain, No Nausea, No Vomiting, No Diarrhea Genitourinary Symptoms: No Symptoms, No Dysuria Musculoskeletal: No Symptoms, No Back Pain, No Neck Pain Skin: No Symptoms, No Rash Neurological: No Symptoms, No Dizziness, No Focal Weakness, No Sensory Changes Psychological: No Symptoms Endocrine: No Symptoms Hematologic/Lymphatic: No Symptoms Immunological/Allergic: No Symptoms All Other Systems: Reviewed and Negative - Past Medical History Pertinent Past Medical History: Yes Neurological History: No Pertinent History ENT History: No Pertinent History Cardiac History: No Pertinent History Respiratory History: Pulmonary Embolism Endocrine Medical History: No Pertinent History Musculoskeletal History: No Pertinent History GI Medical History: No Pertinent History History: No Pertinent History Psycho-Social History: Anxiety Female Reproductive Disorders: No Pertinent History Other Medical History: LEFT ANKLE FRACTURE WITH ORIF 2016 WITH RECENT PIN REMOVAL. GASTRIC SLEEVE 2018 - 60# WEIGHT LOSS AT THE TIME WITH SOME REGAIN - Past Surgical History Past Surgical History: Yes Neuro Surgical History: No Pertinent History Cardiac: No Pertinent History Respiratory: No Pertinent History Gastrointestinal: No Pertinent History Genitourinary: No Pertinent History Musculoskeletal: Orthopedic Surgery Female Surgical History: No Pertinent History Other Surgical History: TONSILS, Plate two screws and wire in L ankle removed, Gastric Sleeve March 2018. left foot surger/plate and screws put in - Social History Smoking Status: Never smoker Exposure to second hand smoke: Yes Drug Use: none Patient Lives Alone: No - Female History Hx Last Menstrual Period: 03/2021 Hx Now: No - Nursing Vital Signs Nursing Vital Signs: Initial Vital Signs Temperature 98.0 F 10/20/21 10:56 Pulse Rate 104 H 10/20/21 10:56 Respiratory Rate 24 10/20/21 10:56 Blood Pressure 138/92 10/20/21 10:56 O2 Sat by Pulse Oximetry 99 10/20/21 10:56 Pain Scale Pain Intensity 0 - Physical Exam General Appearance: no apparent distress, alert Eye Exam: PERRL/EOMI, eyes nml inspection Ears, Nose, Throat Exam: normal ENT inspection, TMs normal, pharynx normal, moist mucous membranes Neck Exam: normal inspection, non-tender, supple, full range of motion Respiratory Exam: normal breath sounds, lungs clear, No respiratory distress Cardiovascular Exam: regular rate/rhythm, normal heart sounds, normal peripheral pulses Gastrointestinal/Abdomen Exam: soft, normal bowel sounds, No tenderness, No mass Back Exam: normal inspection, normal range of motion, No CVA tenderness, No vertebral tenderness Extremity Exam: normal inspection, normal range of motion, pelvis stable Neurologic Exam: alert, oriented x 3, cooperative, normal mood/affect, nml cerebellar function, nml station & gait, sensation nml, No motor deficits Skin Exam: normal color, warm, dry, No rash Lymphatic Exam: No adenopathy SpO2 Interpretation: normal SpO2: 98 O2 Delivery: Room Air - Course Nursing assessment & vital signs reviewed: Yes EKG Interpreted by Me: RATE ([id number]), Sinus Rhythm, NORMAL AXIS, NORMAL INTERVALS Ordered Tests: Active Orders 24 hr Category Date Time Status IV Insertion STAT Care 10/20/21 11:22 Active CHEST WITH CONTRAST [CT] Stat Exams 10/20/21 12:55 Completed CBC W DIFF Stat Lab 10/20/21 11:30 Completed CMP Stat Lab 10/20/21 11:30 Completed HCG QUALITATIVE,SERUM Stat Lab 10/20/21 12:09 Completed TROPONIN Q4H Lab 10/20/21 13:30 Completed TROPONIN Q4H Lab 10/20/21 17:30 Ordered TROPONIN Q4H Lab 10/20/21 21:30 Ordered Holter Monitor ONCE RT 10/20/21 13:22 Active Medication Summary Discontinued Medications Generic Name Dose Route Start Last Admin Trade Name Freq PRN Reason Stop Dose Admin Sodium Chloride 1,000 mls @ 999 mls/hr 10/20/21 11:22 10/20/21 12:45 Sodium Chloride 0.9% 1000 Ml IV 10/20/21 12:22 Infused .Q1H1M STA Infusion Sodium Chloride Confirm 10/20/21 11:40 Sodium Chloride 0.9% 1000 Ml Administered 10/20/21 11:41 Dose 1,000 mls @ ud .ROUTE .STK-MED ONE Lab/Rad Data: Laboratory Result Diagrams 10/20/21 11:30 10/20/21 11:30 Laboratory Results 10/20/21 10/20/21 10/20/21 Range/Units 13:30 12:09 11:30 WBC (4.0-10.5) x10^3/uL RBC (4.1-5.4) x10^6/uL Hgb (12.0-16.0) g/dL Hct (35-47) % MCV (78-100) fL MCH (26-32) pg MCHC (32-36) g/dL RDW (11.5-14.0) % Plt Count (150-450) x10^3/uL MPV (7.5-11.0) fL Gran % (36.0-66.0) % Immature Gran % (Auto) (0.00-0.4) % Nucleat RBC Rel Count (0.00-0.1) % Eos # (Auto) (0-0.5) x10^3/uL Immature Gran # (Auto) (0.00-0.03) x10^3u/L Absolute Lymphs (auto) (1.0-4.6) x10^3/uL Absolute Monos (auto) (0.0-1.3) x10^3/uL Absolute Nucleated RBC (0.00-0.01) x10^3u/L Lymphocytes % (24.0-44.0) % Monocytes % (0.0-12.0) % Eosinophils % (0.00-5.0) % Basophils % (0.0-0.4) % Absolute Granulocytes (1.4-6.9) x10^3/uL Basophils # (0-0.4) x10^3/uL Sodium 138 (137-145) mmol/L Potassium 4.1 (3.5-5.1) mmol/L Chloride 107 (98-107) mmol/L Carbon Dioxide 26 (22-30) mmol/L Anion Gap 8.8 (5-15) MEQ/L BUN 8 (7-17) mg/dL Creatinine 0.73 (0.52-1.04) mg/dL Estimated GFR > 60.0 ML/MIN Glucose 107 H (74-106) mg/dL Calcium 8.6 (8.4-10.2) mg/dL Total Bilirubin 0.40 (0.2-1.3) mg/dL AST 22 (14-36) U/L ALT 21 (0-35) U/L Alkaline Phosphatase 80 (38-126) U/L Troponin I < 0.012 (0.000-0.034) ng/mL Serum Total Protein 7.0 (6.3-8.2) g/dL Albumin 3.7 (3.5-5.0) g/dL Serum , Qual NEGATIVE (Negative) 10/20/21 Range/Units 11:30 WBC 8.3 (4.0-10.5) x10^3/uL RBC 3.99 L (4.1-5.4) x10^6/uL Hgb 12.1 (12.0-16.0) g/dL Hct 38.1 (35-47) % MCV 95.5 (78-100) fL MCH 30.3 (26-32) pg MCHC 31.8 L (32-36) g/dL RDW 12.6 (11.5-14.0) % Plt Count 300 (150-450) x10^3/uL MPV 8.8 (7.5-11.0) fL Gran % 65.7 (36.0-66.0) % Immature Gran % (Auto) 0.2 (0.00-0.4) % Nucleat RBC Rel Count 0.0 (0.00-0.1) % Eos # (Auto) 0.08 (0-0.5) x10^3/uL Immature Gran # (Auto) 0.02 (0.00-0.03) x10^3u/L Absolute Lymphs (auto) 2.30 (1.0-4.6) x10^3/uL Absolute Monos (auto) 0.44 (0.0-1.3) x10^3/uL Absolute Nucleated RBC 0.00 (0.00-0.01) x10^3u/L Lymphocytes % 27.6 (24.0-44.0) % Monocytes % 5.3 (0.0-12.0) % Eosinophils % 1.0 (0.00-5.0) % Basophils % 0.2 (0.0-0.4) % Absolute Granulocytes 5.46 (1.4-6.9) x10^3/uL Basophils # 0.02 (0-0.4) x10^3/uL Sodium (137-145) mmol/L Potassium (3.5-5.1) mmol/L Chloride (98-107) mmol/L Carbon Dioxide (22-30) mmol/L Anion Gap (5-15) MEQ/L BUN (7-17) mg/dL Creatinine (0.52-1.04) mg/dL Estimated GFR ML/MIN Glucose (74-106) mg/dL Calcium (8.4-10.2) mg/dL Total Bilirubin (0.2-1.3) mg/dL AST (14-36) U/L ALT (0-35) U/L Alkaline Phosphatase (38-126) U/L Troponin I (0.000-0.034) ng/mL Serum Total Protein (6.3-8.2) g/dL Albumin (3.5-5.0) g/dL Serum , Qual (Negative) - Progress Progress: improved Progress Note: 10/20/21 13:23 Patient reassessed. She is well. Patient remains asymptomatic. Vitals have been stable within normal limits in our ED. CTA chest negative for PE. Mild fatty liver. Work-up otherwise negative. We will discharge patient home with a Holter monitor. Patient to follow-up with her primary care doctor within 48 hours for evaluation. Plan of care discussed with patient. She agrees to follow-up as planned. She voices no other complaints or concerns at this time. Portions of this note were created with voice recognition technology. There may be grammatical, spelling, punctuation or sound alike errors Counseled pt/family regarding: lab results, diagnosis, need for follow-up, rad results - Departure Departure Disposition: Home Clinical Impression: Fatty liver, SOB (shortness of breath), Near syncope Condition: Stable Critical Care Time: No Referrals: DOCTOR,NO FAMILY [Primary Care Provider] - Follow up/PCP as directed KAYY FLORES MD [ACTIVE STAFF] - Follow up/PCP as directed Additional Instructions: Discharge/Care Plan LEONARD RUCKER was seen on 10/20/21 in the Emergency Room. The patient was counseled regarding Diagnosis,Lab results, Imaging studies, need for follow up and when to return to the Emergency Room. Prescriptions given: Discharge Note I have spoken with the patient and/or caregivers. I have explained the patient's condition, diagnosis and treatment plan based on the information available to me at this time. I have answered the patient's and/or caregiver's questions and addressed any concerns. The patient and/or caregivers have as good understanding of the patient's diagnosis, condition and treatment plan as can be expected at this point. The vital signs have been stable. The patient's condition is stable and appropriate for discharge from the emergency department. The patient will pursue further outpatient evaluation with the primary care physician or other designated or consulting physician as outlined in the discharge instructions. The patient and/or caregivers are agreeable to this plan of care and follow-up instructions have been explained in detail. The patient and/or caregivers have received these instruction. The patient/and or caregivers are aware that any significant change in condition or worsening of symptoms should prompt an immediate return to this or the closest emergency department or call 911.
[2021-10-20] MEDS ORDERED: Sodium Chloride 0.9% 1000 ML 1,000 ML ONE (11:40)
[2021-10-20 11:41] LABS: Absolute Neutrophil Ct (ANC) 5.46 x10^3/uL (1.4-6.9); Basophil (Absolute #) 0.02 x10^3/uL (0-0.4); Eosinophil (Absolute #) 0.08 x10^3/uL (0-0.5); Hematocrit 38.1 % (35-47); Hemoglobin 12.1 g/dL (12.0-16.0); Lymphocytes % 27.6 % (24.0-44.0); Mean Cell Volume 95.5 fL (78-100); Mean Corpuscular Hemoglobin 30.3 pg (26-32); Mean Corpuscular Hgb Concent. 31.8 g/dL (32-36); Mean Platelet Volume 8.8 fL (7.5-11.0); Monocyte (Absolute #) 0.44 x10^3/uL (0.0-1.3); Monocytes % 5.3 % (0.0-12.0); Neutrophil % 65.7 % (36.0-66.0); Platelet Count 300 x10^3/uL (150-450); Red Blood Count 3.99 x10^6/uL (4.1-5.4); Red Cell Distribution Width 12.6 % (11.5-14.0); White Blood Count 8.3 x10^3/uL (4.0-10.5)
[2021-10-20 11:49] LABS: ALBUMIN 3.7 g/dL (3.5-5.0); ALKALINE PHOSPHATASE 80 U/L (38-126); ANION GAP 8.8 MEQ/L (5-15); BLOOD UREA NITROGEN 8 mg/dL (7-17); CHLORIDE 107 mmol/L (98-107); Calcium 8.6 mg/dL (8.4-10.2); Carbon Dioxide 26 mmol/L (22-30); Creatinine 1 0.73 mg/dL (0.52-1.04); EST GLOMERULAR FILTRATION RATE > 60.0 ML/MIN; Glucose 107 mg/dL (74-106); Potassium 4.1 mmol/L (3.5-5.1); SGOT/AST 22 U/L (14-36); SGPT/ALT 21 U/L (0-35); SODIUM 138 mmol/L (137-145)
--- NOTE | 2021-10-20 13:08 | XRAY ---
Indication: Chest heaviness. Status post ankle surgery 6 days ago. Pulmonary embolus. Multiple contiguous axial images obtained through the chest using 100cc Isovue 370 contrast and PE protocol. Comparison: September 18, 2013 Adequate opacification of the pulmonary arteries to include the lobar and segmental branches. No pulmonary embolus. Heart is borderline enlarged. Aorta is normal in course and caliber. No pathologic mediastinal/hilar lymphadenopathy. Lungs demonstrates minimal bilateral dependent atelectasis. No suspicious pulmonary mass, infiltrate, consolidation, or effusion. Bony thorax intact. Limited upper abdomen again demonstrates fatty liver. Interval bariatric surgery. Impression: 1. Continued negative pulmonary embolus. No new/acute cardiopulmonary abnormalities. 2. Incidental fatty liver and bariatric surgery
[2021-10-20 15:10] VITALS: BP 120/78; PULSE 86
== END 2021-10-20 14:35 | disposition home or self-care (01) ==
LOC: ED 10:55
DX: R06.02 Shortness of breath (principal); R55 Syncope and collapse; K76.0 Fatty (change of) liver, not elsewhere classified; H53.8 Other visual disturbances; Z79.01 Long term (current) use of anticoagulants; Z79.899 Other long term (current) drug therapy; Z86.711 Personal history of pulmonary embolism
CPT/HCPCS: 36000; 36415; 71260; 80053; 84484; 84703; 85025; 96360; 99284

== ENCOUNTER 2022-05-08 13:05 | Emergency (ER) | payer OTHER ==
[2022-05-08] MEDS ORDERED: TORAdol 30 mg Injection IM ONE (13:45)
--- NOTE | 2022-05-08 13:52 | ERPHSYRPT ---
- History of Present Illness Source: patient Exam Limitations: no limitations Patient Subjective Stated Complaint: C/O right lower back pain for past 2 weeks Triage Nursing Assessment: Patient ambulated back to ER without difficulties. NO SOB. She is alert and oriented. MARTINEZ WNL. Denies any injuries. Skin tone normal. Physician History: 37yo WF w R CVA pain x2days. Pt just finished Macrobid on 05/02/22 for a UTI prescribed by Dr. Chisholm. She has dysuria but denies hematuria/fever/n/V/D. Pain is 8/10 and worse w movement. Timing/Duration: day(s) (2 days) Method of Injury: unknown Quality: aching Severity of Pain-Max: severe Severity of Pain-Current: severe Modifying Factors: Improves With: movement Associated Symptoms: problems urinating Previous symptoms: same symptoms as today Allergies/Adverse Reactions: amoxicillin [Amoxicillin] Allergy (Mild, Verified 05/08/22 13:17) Rash cefaclor [From Ceclor] Allergy (Mild, Verified 05/08/22 13:17) Rash gluten Adverse Reaction (Verified 05/08/22 13:17) Home Medications: Spironolactone 25 mg [Aldactone 25 MG] 50 mg PO DAILY 10/03/21 [History] Semaglutide [Ozempic] 1 mg SQ WEEKLY 10/07/21 [History] Hx Tetanus, Diphtheria Vaccination/Date Given: Yes Hx Influenza Vaccination/Date Given: Yes Hx Pneumococcal Vaccination/Date Given: No Immunizations Up to Date: Yes Travel Risk - International Travel Have you traveled outside of the country in past 3 weeks: No - Coronavirus Screening Are you exhibiting any of the following symptoms?: No Close contact with a COVID-19 positive Pt in past 14-21 Days: No - Vaccine Status Have you recieved a Covid-19 vaccination: Yes Layout Inspector: Moderna - Vaccination Dates Date of 2cond Vaccination (if applicable): 2020 - Review of Systems Constitutional: No Symptoms Eyes: No Symptoms Ears, Nose, & Throat: No Symptoms Respiratory: No Symptoms Cardiac: No Symptoms Abdominal/Gastrointestinal: No Symptoms Genitourinary Symptoms: No Symptoms, Dysuria Musculoskeletal: No Symptoms, Back Pain Skin: No Symptoms Neurological: No Symptoms Psychological: No Symptoms Endocrine: No Symptoms Hematologic/Lymphatic: No Symptoms Immunological/Allergic: No Symptoms - Past Medical History Pertinent Past Medical History: Yes Neurological History: No Pertinent History ENT History: No Pertinent History Cardiac History: Hypertension Respiratory History: No Pertinent History Endocrine Medical History: No Pertinent History Musculoskeletal History: No Pertinent History GI Medical History: No Pertinent History History: No Pertinent History Psycho-Social History: Anxiety Female Reproductive Disorders: No Pertinent History Other Medical History: PCOS - Past Surgical History Past Surgical History: Yes Neuro Surgical History: No Pertinent History Cardiac: No Pertinent History Respiratory: No Pertinent History Gastrointestinal: No Pertinent History Genitourinary: No Pertinent History Musculoskeletal: Orthopedic Surgery Female Surgical History: No Pertinent History Other Surgical History: TONSILS, Plate two screws and wire in L ankle removed, Gastric Sleeve March 2018. left foot surger/plate and screws put in - Social History Smoking Status: Never smoker Exposure to second hand smoke: Yes Drug Use: none Patient Lives Alone: No - Female History Hx Last Menstrual Period: LAST MONTH Hx Now: No - Nursing Vital Signs Nursing Vital Signs: Initial Vital Signs Temperature 97.9 F 05/08/22 13:20 Pulse Rate 89 05/08/22 13:20 Respiratory Rate 17 05/08/22 13:20 Blood Pressure 127/67 05/08/22 13:20 O2 Sat by Pulse Oximetry 96 05/08/22 13:20 Pain Scale Pain Intensity [] 8 Pain Intensity 4 WNL - Physical Exam General Appearance: no apparent distress Eye Exam: PERRL/EOMI, eyes nml inspection Ears, Nose, Throat Exam: normal ENT inspection, TMs normal, pharynx normal, moist mucous membranes Neck Exam: normal inspection, non-tender, supple, full range of motion, No meningismus, No mass, No Brudzinski, No Kernig's Respiratory Exam: normal breath sounds, lungs clear, airway intact Cardiovascular Exam: regular rate/rhythm, normal heart sounds, normal peripheral pulses, capillary refill <2 sec, No murmur Gastrointestinal Exam: soft, normal bowel sounds, No tenderness, No distention Back Exam: CVA tenderness (Mild L) Extremity Exam: normal inspection, normal range of motion Peripheral Pulses: carotid (R): 2+, carotid (L): 2+ Neurologic Exam: alert, oriented x 3, cooperative, branch lending manager II-XII nml as tested, normal mood/affect, nml cerebellar function, nml station & gait, sensation nml Skin Exam: normal color, warm, dry Lymphatic Exam: No adenopathy SpO2 Interpretation: normal SpO2: 96 O2 Delivery: Room Air - Course Nursing assessment & vital signs reviewed: Yes - CT Exams Abdomen/Pelvis CT Interpretation: Discussed w/radiologist (Nothing acute per Rad) Ordered Tests: Active Orders 24 hr Category Date Time Status IV Insertion STAT Care 05/08/22 14:43 Completed ABDOMEN AND PELVIS W/0 CONTRAS [CT] Stat Exams 05/08/22 14:44 Completed CBC W DIFF Stat Lab 05/08/22 15:30 Completed CMP Stat Lab 05/08/22 15:15 Completed CULTURE,URINE Stat Lab 05/08/22 13:35 Received HCG,QUALITATIVE URINE Stat Lab 05/08/22 13:35 Completed Lactic Acid Stat Lab 05/08/22 14:57 Completed UA W/RFX UR CULTURE Stat Lab 05/08/22 13:35 Completed Medication Summary Discontinued Medications Generic Name Dose Route Start Last Admin Trade Name Freq PRN Reason Stop Dose Admin Sodium Chloride 1,000 mls @ 999 mls/hr 05/08/22 14:43 05/08/22 16:35 Sodium Chloride 0.9% 1000 Ml IV 05/08/22 15:43 Infused .Q1H1M STA Infusion Levofloxacin/Dextrose 750 mg in 150 mls @ 100 mls/hr 05/08/22 14:59 05/08/22 16:47 Levofloxacin 750mg/150ml D5w IV 05/08/22 16:28 Infused STAT STA Infusion Sodium Chloride Confirm 05/08/22 15:01 Sodium Chloride 0.9% 1000 Ml Administered 05/08/22 15:02 Dose 1,000 mls @ ud .ROUTE .STK-MED ONE Levofloxacin/Dextrose Confirm 05/08/22 15:01 Levofloxacin 750mg/150ml D5w Administered 05/08/22 15:02 Dose 750 mg in 150 mls @ ud IV .STK-MED ONE Ketorolac Tromethamine 15 mg 05/08/22 13:45 05/08/22 14:00 Ketorolac Tromethamine 30 Mg/Ml Inj IM 05/08/22 13:46 15 mg STAT ONE Administration Ketorolac Tromethamine Confirm 05/08/22 13:57 Ketorolac Tromethamine 30 Mg/Ml Inj Administered 05/08/22 13:58 Dose 30 mg .ROUTE .STK-MED ONE Lab/Rad Data: Laboratory Result Diagrams 05/08/22 15:30 05/08/22 15:15 Laboratory Results 05/08/22 05/08/22 05/08/22 Range/Units 15:30 15:15 14:57 WBC 10.1 (4.0-10.5) x10^3/uL RBC 4.27 (4.1-5.4) x10^6/uL Hgb 12.6 (12.0-16.0) g/dL Hct 40.7 (35-47) % MCV 95.3 (78-100) fL MCH 29.5 (26-32) pg MCHC 31.0 L (32-36) g/dL RDW 12.4 (11.5-14.0) % Plt Count 320 (150-450) x10^3/uL MPV 8.7 (7.5-11.0) fL Gran % 70.8 H (36.0-66.0) % Immature Gran % (Auto) 0.2 (0.00-0.4) % Nucleat RBC Rel Count 0.0 (0.00-0.1) % Eos # (Auto) 0.05 (0-0.5) x10^3/uL Immature Gran # (Auto) 0.02 (0.00-0.03) x10^3u/L Absolute Lymphs (auto) 2.28 (1.0-4.6) x10^3/uL Absolute Monos (auto) 0.55 (0.0-1.3) x10^3/uL Absolute Nucleated RBC 0.00 (0.00-0.01) x10^3u/L Lymphocytes % 22.7 L (24.0-44.0) % Monocytes % 5.5 (0.0-12.0) % Eosinophils % 0.5 (0.00-5.0) % Basophils % 0.3 (0.0-0.4) % Absolute Granulocytes 7.13 H (1.4-6.9) x10^3/uL Basophils # 0.03 (0-0.4) x10^3/uL Sodium 139 (137-145) mmol/L Potassium 4.0 (3.5-5.1) mmol/L Chloride 106 (98-107) mmol/L Carbon Dioxide 21 L (22-30) mmol/L Anion Gap 16.1 H (5-15) MEQ/L BUN 11 (7-17) mg/dL Creatinine 0.65 (0.52-1.04) mg/dL Estimated GFR > 60.0 ML/MIN Glucose 80 (74-106) mg/dL Lactic Acid 1.1 (0.4-2.0) Calcium 8.6 (8.4-10.2) mg/dL Total Bilirubin 0.40 (0.2-1.3) mg/dL AST 19 (14-36) U/L ALT 19 (0-35) U/L Alkaline Phosphatase 87 (38-126) U/L Serum Total Protein 7.9 (6.3-8.2) g/dL Albumin 4.3 (3.5-5.0) g/dL Urine Color (Yellow) Urine Appearance (Clear) Urine pH (4.6-8.0) Ur Specific [place] (1.005-1.030) Urine Protein (Negative) Urine Glucose (UA) (Negative) mg/dL Urine Ketones (Negative) Urine Blood (Negative) Urine Nitrite (Negative) Urine Bilirubin (Negative) Urine Urobilinogen (0.2) mg/dL Ur Leukocyte Esterase (Negative) U Hyaline Cast (Auto) (0-2) /LPF Urine Microscopic RBC (0-5) /HPF Urine Microscopic WBC (0-5) /HPF Ur Epithelial Cells (None Seen) /HPF Urine Bacteria (None Seen) /HPF Urine Culture Reflexed (NO) Urine HCG, Qual (Negative) 05/08/22 05/08/22 Range/Units 13:35 13:35 WBC (4.0-10.5) x10^3/uL RBC (4.1-5.4) x10^6/uL Hgb (12.0-16.0) g/dL Hct (35-47) % MCV (78-100) fL MCH (26-32) pg MCHC (32-36) g/dL RDW (11.5-14.0) % Plt Count (150-450) x10^3/uL MPV (7.5-11.0) fL Gran % (36.0-66.0) % Immature Gran % (Auto) (0.00-0.4) % Nucleat RBC Rel Count (0.00-0.1) % Eos # (Auto) (0-0.5) x10^3/uL Immature Gran # (Auto) (0.00-0.03) x10^3u/L Absolute Lymphs (auto) (1.0-4.6) x10^3/uL Absolute Monos (auto) (0.0-1.3) x10^3/uL Absolute Nucleated RBC (0.00-0.01) x10^3u/L Lymphocytes % (24.0-44.0) % Monocytes % (0.0-12.0) % Eosinophils % (0.00-5.0) % Basophils % (0.0-0.4) % Absolute Granulocytes (1.4-6.9) x10^3/uL Basophils # (0-0.4) x10^3/uL Sodium (137-145) mmol/L Potassium (3.5-5.1) mmol/L Chloride (98-107) mmol/L Carbon Dioxide (22-30) mmol/L Anion Gap (5-15) MEQ/L BUN (7-17) mg/dL Creatinine (0.52-1.04) mg/dL Estimated GFR ML/MIN Glucose (74-106) mg/dL Lactic Acid (0.4-2.0) Calcium (8.4-10.2) mg/dL Total Bilirubin (0.2-1.3) mg/dL AST (14-36) U/L ALT (0-35) U/L Alkaline Phosphatase (38-126) U/L Serum Total Protein (6.3-8.2) g/dL Albumin (3.5-5.0) g/dL Urine Color Yellow (Yellow) Urine Appearance Cloudy A (Clear) Urine pH 6.0 (4.6-8.0) Ur Specific [place] >=1.030 A (1.005-1.030) Urine Protein Trace A (Negative) Urine Glucose (UA) Negative (Negative) mg/dL Urine Ketones Negative (Negative) Urine Blood Trace (Negative) Urine Nitrite Negative (Negative) Urine Bilirubin Negative (Negative) Urine Urobilinogen 1.0 A (0.2) mg/dL Ur Leukocyte Esterase Moderate A (Negative) U Hyaline Cast (Auto) NONE SEEN (0-2) /LPF Urine Microscopic RBC 6-10 A (0-5) /HPF Urine Microscopic WBC 51-100 A (0-5) /HPF Ur Epithelial Cells Moderate A (None Seen) /HPF Urine Bacteria Many A (None Seen) /HPF Urine Culture Reflexed YES (NO) Urine HCG, Qual NEGATIVE (Negative) - Progress Progress: improved Progress Note: 05/08/22 16:46 Nursing note and vital signs reviewed No food or housing insecurities noted Pt has access to medical care and meds 15mg IM toradol w improvement 1L NS Bolus 750mg IV Levaquin Lab and CT results reviewed and shared w patient Pt refuses pain meds for home 05/08/22 16:48 Urine culture reviewed from 04/27/22 Klebsiella pneumonia w wide sensitivity per office visit w Dr. Chisholm 05/08/22 20:30 Counseled pt/family regarding: lab results, diagnosis, need for follow-up, rad results - Departure Departure Disposition: Home Clinical Impression: UTI (urinary tract infection) Condition: Stable Critical Care Time: No Referrals: ERICKA DE SANTIAGO NP [Primary Care Provider] - Follow up/PCP as directed Instructions: Low Back Pain (DC), Urinary Tract Infection, Adult (DC) Additional Instructions: Fluids Motrin/Tylenol for pain Follow up with your family MD or Dr. Chisholm Continue Levaquin in the morning Return to ER for increasing pain or temperature greater than 100.5 Prescriptions: Levofloxacin [Levofloxacin 500 MG Tablet] 750 mg PO DAILY 5 Days #5 tablet
[2022-05-08 13:56] LABS: Appearance Cloudy (Clear); Bacteria Many /HPF (None Seen); Bilirubin Negative (Negative); Blood Trace (Negative); Epithelial Cells Moderate /HPF (None Seen); Glucose, Urine Negative (Negative); Hyaline Casts NONE SEEN /LPF (0-2); Ketones Negative (Negative); Leukocyte Esterase Moderate (Negative); Nitrite Negative (Negative); Protein,Urine Dip Trace (Negative); Specific Gravity >=1.030 (1.005-1.030); WBC 51-100 /HPF (0-5)
[2022-05-08] MEDS ORDERED: TORAdol 30 mg Injection ONE (13:57)
[2022-05-08 14:05] LABS: ADD URINE CULTURE? YES (NO)
[2022-05-08] MEDS ORDERED: Sodium Chloride 0.9% 1000 ML 1,000 ML IV STA (14:43)
[2022-05-08] MEDS ORDERED: LEVOFLOXACIN 750MG/150ML D5W 750 MG/150 ML BAG IV STA (14:59)
[2022-05-08] MEDS ORDERED: Sodium Chloride 0.9% 1000 ML 1,000 ML ONE (15:01)
[2022-05-08] MEDS ORDERED: LEVOFLOXACIN 750MG/150ML D5W 750 MG/150 ML BAG IV ONE (15:01)
[2022-05-08 15:38] LABS: Absolute Neutrophil Ct (ANC) 7.13 x10^3/uL (1.4-6.9); BASOPHIL % 0.3 % (0.0-0.4); Basophil (Absolute #) 0.03 x10^3/uL (0-0.4); Eosinophil % 0.5 % (0.00-5.0); Eosinophil (Absolute #) 0.05 x10^3/uL (0-0.5); Hematocrit 40.7 % (35-47); Hemoglobin 12.6 g/dL (12.0-16.0); IMMATURE GRAN # 0.02 x10^3u/L (0.00-0.03); IMMATURE GRAN % 0.2 % (0.00-0.4); Lymphocyte (Absolute #) 2.28 x10^3/uL (1.0-4.6); Lymphocytes % 22.7 % (24.0-44.0); Mean Cell Volume 95.3 fL (78-100); Mean Corpuscular Hemoglobin 29.5 pg (26-32); Mean Platelet Volume 8.7 fL (7.5-11.0); Monocyte (Absolute #) 0.55 x10^3/uL (0.0-1.3); Monocytes % 5.5 % (0.0-12.0); Neutrophil % 70.8 % (36.0-66.0); Platelet Count 320 x10^3/uL (150-450); Red Blood Count 4.27 x10^6/uL (4.1-5.4); Red Cell Distribution Width 12.4 % (11.5-14.0); White Blood Count 10.1 x10^3/uL (4.0-10.5)
[2022-05-08 15:45] LABS: ALBUMIN 4.3 g/dL (3.5-5.0); ALKALINE PHOSPHATASE 87 U/L (38-126); ANION GAP 16.1 MEQ/L (5-15); BLOOD UREA NITROGEN 11 mg/dL (7-17); CHLORIDE 106 mmol/L (98-107); Calcium 8.6 mg/dL (8.4-10.2); Carbon Dioxide 21 mmol/L (22-30); Creatinine 1 0.65 mg/dL (0.52-1.04); EST GLOMERULAR FILTRATION RATE > 60.0 ML/MIN; Glucose 80 mg/dL (74-106); SGOT/AST 19 U/L (14-36); SGPT/ALT 19 U/L (0-35); SODIUM 139 mmol/L (137-145); Total Protein 7.9 g/dL (6.3-8.2)
--- NOTE | 2022-05-08 16:19 | XRAY ---
Indication: Left flank pain. Multiple contiguous axial images obtained through abdomen and pelvis without contrast using renal stone protocol. Comparison: April 01, 2021 Lung bases demonstrates minimal dependent atelectasis. Heart not enlarged. No renal calculus or evidence for objective uropathy in either system. Again bariatric surgery. Noncontrasted stomach and bowel loops nonobstructed with normal appendix. No free fluid/air. Remaining liver, gallbladder, pancreas, spleen, adrenal glands, kidneys, ureters, bladder, uterus, and aorta are unremarkable for noncontrast exam. Osseous structures intact. Impression: Continued negative renal calculus or evidence for obstructive uropathy. CT abdomen/pelvis without contrast exam continues to be negative.
[2022-05-08 16:58] VITALS: BP 109/62; PULSE 68
[2022-05-08 20:32] VITALS: O2SAT 96
== END 2022-05-08 17:04 | disposition home or self-care (01) ==
LOC: ED 13:05
DX: N39.0 Urinary tract infection, site not specified (principal); R10.9 Unspecified abdominal pain; R30.0 Dysuria; I10 Essential (primary) hypertension; Z79.85 Long-term (current) use of injectable non-insulin antidiabetic drugs; Z79.899 Other long term (current) drug therapy
CPT/HCPCS: 36000; 36415; 74176; 80053; 81001; 81025; 83605; 85025; 87077; 87086; 87186; 96360; 96365; 96372; 99284; J1885; J1956